=== PATIENT | female | born 1990 | race Caucasian/White ===

== ENCOUNTER 2018-02-10 16:30 | Inpatient (IN) | payer OTHER ==
[2018-02-10] MEDS ORDERED: CALCIUM CARBONATE 500 MG CHEWABLE TAB PO PRN (17:43)
[2018-02-10] MEDS: ACETAMINOPHEN 500 MG TAB PO PRN (18:02)
--- NOTE | 2018-02-10 18:43 | GHP ---
[f rep st] HISTORY AND PHYSICAL DATE OF ADMISSION: 02/10/2018 ADMISSION DIAGNOSES: 1. Intrauterine at 36 weeks and 4 days. 2. Leakage of fluid. 3. New onset headaches, visual changes. 4. Elevated blood pressures. HISTORY OF PRESENT ILLNESS: The patient is a 27-year-old, 1, para 0, at 36 and 4 weeks with estimated due date 03/06/2018; this is by last menstrual period, 05/28/2017, consistent with an 8-week ultrasound. The patient presents to Labor and Delivery with complaints of leakage of fluid. She noticed a gush x2 earlier today, clear fluid noted. No odor. She has not noticed any further leaking, just noticed that there is some moisture. Denies any vaginal bleeding or spotting. She is also complaining of decreased movement, has not really felt baby boy move much today. She thought it felt like it was secondary to dehydration and started hydrating really well and still did not feel any movement. The patient is also complaining of new onset of headaches and blurred vision, seeing black spots. This has been going on for the last 4 days. The headache has not gone away with Tylenol. She did not take any Tylenol today. The patient states the black spots are no there all the time , but did start with the onset of headache 4 days ago. The patient denies any right upper quadrant pain or epigastric pain. The patient was seen at her visit yesterday by our rn perioperative, Danielle, and [facility] labs were drawn secondary to complaints of headache. Blood pressure in the office was 106/64. The patient does have good care at [facility], and presented in her first trimester. Her 20-week anatomy scan revealed normal anatomy, posterior placenta, with an estimated weight in 40th percentile. The patient is Rh negative, and did receive RhoGAM 12/16/2017. She is also rubella nonimmune. The patient does have a history of abnormal Pap smear-LSIL. Did not have a colpo. She had a repeat Pap at 30 weeks and was high- grade. Patient then undergo a colposcopy at 32 weeks with no abnormal findings noted. The patient was complaining of contractions and increased vaginal discharge at 35 weeks and had a spec exam that was negative for pooling and fern. Cervix was closed, thick and high. The patient received both flu and Tdap in the . GBS culture is negative. PAST OB HISTORY: The patient is a primigravida. PAST MUSIC MINISTRIES DIRECTOR HISTORY: Age of menarche 13. Cycles every 28 days for 3-4 days. Positive test 07/05/2017. The patient does have a history of abnormal Pap smears, and had colposcopy x2, but no treatment. Patient has h/o + HPV, but denies exposure to any other sexually transmitted diseases. She has a history of NuvaRing and Depo use in the past, as well as OCPs, which she discontinued 3 months prior to becoming . CURRENT MEDICATIONS: vitamins. ALLERGIES: No known drug allergies. MEDICAL HISTORY: History of melanoma of the right knee in 2016. PAST SURGICAL HISTORY: Tonsillectomy at age 20; right ankle surgery x2 in college secondary to soccer injury. FAMILY HISTORY: Mother, breast cancer in late 30s, early 40s. SOCIAL HISTORY: The patient is a single, has a partner. She is an data assistant. The patient had tobacco use of half-a-pack per day for 2 years , decreased 3 months prior to getting , and discontinued when she found out she was . The patient denies any alcohol use or illicit drug use. REVIEW OF SYSTEMS: 10-point review of systems is negative, pertinent positives noted in HPI. LABS: B-negative, antibody negative. RPR nonreactive. Rubella non- immune. Hepatitis B surface antigen negative. HIV negative. Standard panel negative. Urine culture negative. Pap test was negative, positive HPV. GC and chlamydia cultures negative. Innatal screen negative. H and H 13.5, 37.5. One-hour Glucola of 119. Rh antibody negative, RhoGAM given 12/16/2017. GBS culture negative. LABS: H and H 14.5 and 40.7, platelets are 167. BUN 10, creatinine 0.5, uric acid 4.2, AST 26, ALT 41, LDH 487. Urine random creatinine 19.5, urine random total protein 14, this is consistent with P-to-C ratio of 0.7, which is elevated. PHYSICAL EXAMINATION: VITAL SIGNS: On admission, the patient is afebrile. Blood pressure on admission initially 143/93, 134/82, 137/78, and most recently 128/80. GENERAL: She is a well-nourished, well-developed female, alert and oriented x3. No apparent distress. Headache. CARDIOVASCULAR: Regular rate and rhythm. LUNGS: Clear to auscultation bilaterally. ABDOMEN: Gravid, soft, nontender, nondistended. PELVIC: Exam was deferred. Not grossly ruptured. Not enough fluid for Nitrazine. EXTREMITIES: Normal to inspection without calf tenderness, mild edema. +1 DTRs. heart tones: Category 1 tracing, with heart baseline 130 beats per minute. Positive accelerations. No decelerations. Moderate variability. On toco, there is uterine irritability. ASSESSMENT AND PLAN: The patient is a 27-year-old, 1, para 0, at 36 and 4 weeks, who presents with leakage of fluid, elevated blood pressures, and new onset visual changes and headaches. 1. Will admit to Labor and Delivery for observation. 2. AmniSure is negative, pt is not ruptured at this time. 3. -induced hypertension labs normal. However, there is an elevated vgcgydg-co-ebsahrcs ratio at 0.7. 4. Will start a 24-hour urine; concern for preeclampsia with new onset headaches, visual changes, as well as elevated BPs and pkqazzc-ga-qtyknojyyw ratio. 5. Will continue to closely monitor blood pressures. Right now, the patient does not meet criteria for gestational hypertension; however, does have severe features of preeclampsia despite blood pressures less than 140/90. 6. Will observe overnight with close monitoring for worsening symptoms or elevated blood pressures and consider rescue steroids. /[id number]/MODL MTDD
[2018-02-10] MEDS: ACET/CAFFEINE/BUTA FIORICET 1 EACH TAB PO PRN (22:02)
[2018-02-10] MEDS: ZOLPIDEM TARTRATE 5 MG TAB PO PRN (22:13)
[2018-02-11] MEDS: ACETAMINOPHEN 500 MG TAB PO PRN ×2 (06:06→13:10)
[2018-02-11 06:27] LABS: PLATELET COUNT 163 10^3/uL (150-400)
[2018-02-11] MEDS: ACET/CAFFEINE/BUTA FIORICET 1 EACH TAB PO PRN ×2 (07:37→15:21)
--- NOTE | 2018-02-11 13:49 | OBPROG ---
Labor Progress Note Assessment/Plan: Assessment: IUP at 36w5d slight elevation of bld pressures - not preeclampsia range stable labs headache - no help with fiorecet, is 4/10 range mild right epigastric pain Plan: complete 24 hr urine collection, then feel pt can be discharged home. Pt to watch symptoms and call for worsening of PÉREZ or N/V or RUQ pain. If she checks bld pressures, call if greater than 140/90. Rec RTC on Mon with NST 02/11/18 13:44 Subjective/Intrapartum Course: 02/11/18 13:49 Pt still c/o PÉREZ 4/10, and right epigastric pain gradually building this week. Pt reports +FM and increased ctxns on night - no bleeding. some tightening today. reviewed with pt that b/p tolerable, although increased from prior in pregnance. Labs all normal and will complete urine collection for comparison if needed later. Objective: 02/11/18 06:14 02/11/18 06:14 Uric Acid 4.0 mg/dL (2.5-6.8) 02/11/18 06:14 AST 24 IU/L (14-46) 02/11/18 06:14 ALT 40 IU/L (9-52) 02/11/18 06:14 Lactate Dehydrogenase 444 IU/L (313-618) 02/11/18 06:14 - FHR Assessment Torres FHR (bpm): 130 FHR Pattern Variability: Moderate FHR Category: 1 - Physical Exam General Appearance: WD/WN, other (flat affect ) Abdomen: non-tender, soft Extremities: non-tender, pedal edema (mild and normal DTRs) Skin: normal color, warm/dry Neuro/Psych: alert, normal mood/affect (blunt affect) Oxytocin Orders Assessment - Pre-Induction/Augmentation Assessment Gestational Age: 36 week(s) and 4 day(s) ICD10 Worksheet Patient Problems: Problems Problem Status Onset Gestational [-induced] hypertension without significant proteinuria, third trimester Acute Headache Acute Third trimester Acute
[2018-02-11] MEDS ORDERED: MISOPROSTOL 200 MCG TAB PR PRN (19:23)
[2018-02-11] MEDS ORDERED: OXYTOCIN 20 UNIT in LR 1,000 ML IV PRN (19:23)
[2018-02-11] MEDS ORDERED: OLIVE OIL 118 ML BTL MISC PRN (19:23)
[2018-02-11] MEDS ORDERED: EPSOM SALT 454 GM TP PRN (19:23)
[2018-02-11] MEDS ORDERED: TERBUTALINE SULFATE 1 MG/ML VIAL IV PRN (19:23)
[2018-02-11] MEDS ORDERED: IBUPROFEN 600 MG TAB PO PRN (19:23)
[2018-02-11] MEDS ORDERED: BETAMETHASONE IM SYRINGE IM ONE (19:26)
--- NOTE | 2018-02-11 19:34 | OBPROG ---
Labor Progress Note Assessment/Plan: Assessment: IUP at 36w5d gestational hypertension with some severe components with persistent PÉREZ at 5/10 stable labs - will recheck now mild right epigastric pain will give BMZ GBS - suspect unfavorable cx - will check now and place jay prn for induction tomorrow Plan: jay tonight and labs, BMZ and if stable - begin pit in am 02/11/18 13:44 02/11/18 19:27 Subjective/Intrapartum Course: 02/11/18 13:49 Pt still c/o PÉREZ 4/10, and right epigastric pain gradually building this week. Pt reports +FM and increased ctxns on night - no bleeding. some tightening today. reviewed with pt that b/p tolerable, although increased from prior in pregnance. Labs all normal and will complete urine collection for comparison if needed later. 02/11/18 19:29 Pt preparing to leave after last urine collection but c/o PÉREZ intensity of 5-6/ 10 - no help with Fiorecet. Due to persistent symptoms and b/p of 142/90 - pt was offered to stay and keep close eye on b/p,symptoms. After long discussion , pt's b/p 150s/90s and decision to proceed with induction for gest HTN with some severe features. Will place jay and give BMZ. recheck labs. Pt and husb agree Objective: 02/11/18 06:14 02/11/18 06:14 Uric Acid 4.0 mg/dL (2.5-6.8) 02/11/18 06:14 AST 24 IU/L (14-46) 02/11/18 06:14 ALT 40 IU/L (9-52) 02/11/18 06:14 Lactate Dehydrogenase 444 IU/L (313-618) 02/11/18 06:14 - Contraction Pattern Assessment Current Contraction Pattern: Other (Specify) (none) Oxytocin Orders Assessment - Pre-Induction/Augmentation Assessment Gestational Age: 36 week(s) and 4 day(s) ICD10 Worksheet Patient Problems: Problems Problem Status Onset Gestational [-induced] hypertension without significant proteinuria, third trimester Acute Headache Acute Third trimester Acute
[2018-02-11 20:34] LABS: PLATELET COUNT 167 10^3/uL (150-400)
[2018-02-11] MEDS ORDERED: METOCLOPRAMIDE 10 MG/2 ML VIAL IVP ONE (21:15)
--- NOTE | 2018-02-11 21:49 | OBPROG ---
Labor Progress Note Assessment/Plan: Assessment: IUP at 36w5d gestational hypertension with some severe components with persistent PÉREZ at 5/10 stable labs mild right epigastric pain BMZ - given GBS - unfavorable cx - FT/50/post/soft Plan: jay placed- begin pit in am tried Reglan for PÉREZ Ambien to sleep 02/11/18 13:44 02/11/18 19:27 02/11/18 21:44 Subjective/Intrapartum Course: 02/11/18 13:49 Pt still c/o PÉREZ 4/10, and right epigastric pain gradually building this week. Pt reports +FM and increased ctxns on night - no bleeding. some tightening today. reviewed with pt that b/p tolerable, although increased from prior in pregnance. Labs all normal and will complete urine collection for comparison if needed later. 02/11/18 19:29 Pt preparing to leave after last urine collection but c/o PÉREZ intensity of 5-6/ 10 - no help with Fiorecet. Due to persistent symptoms and b/p of 142/90 - pt was offered to stay and keep close eye on b/p,symptoms. After long discussion , pt's b/p 150s/90s and decision to proceed with induction for gest HTN with some severe features. Will place jay and give BMZ. recheck labs. Pt and husb agree 02/11/18 21:46 Pt states PÉREZ persisting, will try reglan. ok with jay placement. b/p 130-150/ 80-100s Objective: 02/11/18 19:50 02/11/18 19:50 Patient ABO/Rh B NEGATIVE 02/11/18 19:50 Uric Acid 4.1 mg/dL (2.5-6.8) 02/11/18 19:50 Total Bilirubin 0.4 mg/dL (0.1-1.4) 02/11/18 19:50 Conjugated Bilirubin 0.3 mg/dL (0.0-0.5) 02/11/18 19:50 Unconjugated Bilirubin 0.1 mg/dL (0.0-1.1) 02/11/18 19:50 AST 24 IU/L (14-46) 02/11/18 19:50 ALT 42 IU/L (9-52) 02/11/18 19:50 Lactate Dehydrogenase 488 IU/L (313-618) 02/11/18 19:50 labs reassuring 24 hr urine greater than 900mg - SVE Dilation (cm): 0 (Fingertip) Effacement (%): 50 Station: -1 Membranes: Intact - Contraction Pattern Assessment Current Contraction Pattern: Other (Specify) (none) - FHR Assessment Torres FHR (bpm): 140 FHR Pattern Variability: Moderate FHR Category: 1 - Procedures Non-surgical Procedures: Other (Specify) (jay placement uncomplicated. cx/ vagina wiped with betadine gauze x4, jay inserted without probs. filled with 30 cc) - Physical Exam General Appearance: WD/WN Estimated Weight: 2501-3400g Abdomen: soft Extremities: non-tender, pedal edema (minimal, normal DTRs) Skin: normal color, warm/dry Neuro/Psych: alert, normal mood/affect Oxytocin Orders Assessment - Pre-Induction/Augmentation Assessment Gestational Age: 36 week(s) and 4 day(s) ICD10 Worksheet Patient Problems: Problems Problem Status Onset Gestational [-induced] hypertension without significant proteinuria, third trimester Acute Headache Acute Third trimester Acute
[2018-02-11] MEDS: RANITIDINE 50 MG/2 ML VIAL IVP PRN (21:55)
[2018-02-11] MEDS: ZOLPIDEM TARTRATE 5 MG TAB PO PRN (23:22)
[2018-02-12] MEDS ORDERED: LR 500 ML IV PRN (00:06)
[2018-02-12] MEDS ORDERED: OXYTOCIN 30 UNIT in NS 500 ML IV SCH (00:15)
[2018-02-12] MEDS ORDERED: TERBUTALINE SULFATE 1 MG/ML VIAL ONE (05:21)
[2018-02-12] MEDS ORDERED: OLIVE OIL 118 ML BTL ONE (05:21)
[2018-02-12] MEDS ORDERED: AMMONIA AROMATIC 1 EACH AMP IH ONE (05:21)
[2018-02-12] MEDS ORDERED: LIDOCAINE 1% 300 MG/30 ML SDV ONE (05:21)
[2018-02-12] MEDS ORDERED: OXYTOCIN 10 UNIT/ML VIAL ONE (05:22)
[2018-02-12] MEDS ORDERED: MISOPROSTOL 200 MCG TAB ONE (05:22)
[2018-02-12] MEDS: LR 1,000 ML IV PRN ×2 (06:06→13:50)
[2018-02-12] MEDS: ACET/CAFFEINE/BUTA FIORICET 1 EACH TAB PO PRN (07:32)
[2018-02-12] MEDS: METOCLOPRAMIDE 10 MG/2 ML VIAL IVP PRN ×2 (09:41→18:23)
[2018-02-12] MEDS: RANITIDINE 50 MG/2 ML VIAL IVP PRN (10:54)
--- NOTE | 2018-02-12 11:38 | OBPROG ---
Labor Progress Note Assessment/Plan: Assessment: Pitocin now at 20 this AM, jay in place. Pt not feeling much at all - some mild cramping that comes and goes, has been intermittently sleeping. Baby looks good, Category I/II. BP's mild range, none severe, PÉREZ has waxed and waned but now 2/10 with recent Reglan. Reflexes normal. Plan: IOL: Not much response now on 20 of Pit, I don't like to go higher than 20 without an IUPC. Discussed w pt and partner that if not making more progress after 2 hours - options would be to take break from Pit then turn back on vs turning Pitocin off and ripening overnight with Cervidil (wouldn't use Cytotec for her). I'd recommend the later, and they're fine with that. Will monitor BP and treat as needed - if PÉREZ becomes unmanageable or if BP's become severe would start mag. Won't repeat labs right away - won't change anything in the absence of a change in her clinical status. Subjective/Intrapartum Course: 02/11/18 13:49 Pt still c/o PÉREZ 4/10, and right epigastric pain gradually building this week. Pt reports +FM and increased ctxns on night - no bleeding. some tightening today. reviewed with pt that b/p tolerable, although increased from prior in pregnance. Labs all normal and will complete urine collection for comparison if needed later. 02/11/18 19:29 Pt preparing to leave after last urine collection but c/o PÉREZ intensity of 5-6/ 10 - no help with Fiorecet. Due to persistent symptoms and b/p of 142/90 - pt was offered to stay and keep close eye on b/p,symptoms. After long discussion , pt's b/p 150s/90s and decision to proceed with induction for gest HTN with some severe features. Will place jay and give BMZ. recheck labs. Pt and husb agree 02/11/18 21:46 Pt states PÉREZ persisting, will try reglan. ok with jay placement. b/p 130-150/ 80-100s 02/12/18 11:38 PÉREZ improved now 2/10 after Reglan. Has been sleeping. Denies other new/ evolving s/sx of Preeclampsia. She feels some constant lower pelvic cramping, but not neccesssarily discrete ctx's that come and go. Objective: 02/11/18 19:50 02/11/18 19:50 Patient ABO/Rh B NEGATIVE 02/11/18 19:50 Uric Acid 4.1 mg/dL (2.5-6.8) 02/11/18 19:50 Total Bilirubin 0.4 mg/dL (0.1-1.4) 02/11/18 19:50 Conjugated Bilirubin 0.3 mg/dL (0.0-0.5) 02/11/18 19:50 Unconjugated Bilirubin 0.1 mg/dL (0.0-1.1) 02/11/18 19:50 AST 24 IU/L (14-46) 02/11/18 19:50 ALT 42 IU/L (9-52) 02/11/18 19:50 Lactate Dehydrogenase 488 IU/L (313-618) 02/11/18 19:50 - SVE Membranes: Intact - Contraction Pattern Assessment Current Contraction Pattern: Irregular, Other (Specify) (none) - FHR Assessment Torres FHR (bpm): 140 FHR Pattern Variability: Moderate FHR Category: 1 - Procedures Non-surgical Procedures: Other (Specify) (jay placement uncomplicated. cx/ vagina wiped with betadine gauze x4, jay inserted without probs. filled with 30 cc) - Physical Exam Estimated Weight: 2501-3400g Oxytocin Orders Assessment - Pre-Induction/Augmentation Assessment Gestational Age: 36 week(s) and 4 day(s) Estimated Weight: 2501-3400g ICD10 Worksheet Patient Problems: Problems Problem Status Onset Gestational [-induced] hypertension without significant proteinuria, third trimester Acute Headache Acute Third trimester Acute
--- NOTE | 2018-02-12 15:39 | OBPROG ---
Labor Progress Note Assessment/Plan: Assessment: Pitocin now at 20 this AM, jay in place. Pt not feeling much at all - some mild cramping that comes and goes, has been intermittently sleeping. Baby looks good, Category I/II. BP's mild range, none severe, PÉREZ has waxed and waned but now 2/10 with recent Reglan. Reflexes normal. Plan: IOL: Not much response now on 20 of Pit, I don't like to go higher than 20 without an IUPC. Discussed w pt and partner that if not making more progress after 2 hours - options would be to take break from Pit then turn back on vs turning Pitocin off and ripening overnight with Cervidil (wouldn't use Cytotec for her). I'd recommend the later, and they're fine with that. Will monitor BP and treat as needed - if PÉREZ becomes unmanageable or if BP's become severe would start mag. Won't repeat labs right away - won't change anything in the absence of a change in her clinical status. 02/12/18 15:38 Balloon was in the vagina during my exam - 3cm, 40% and pretty firm cervix, -1 station. AROM performed with clear fluid. She will think about epidural based on how things are changing. Baby Category I. BPs normal to mild range, PÉREZ minimal. Subjective/Intrapartum Course: 02/11/18 13:49 Pt still c/o PÉREZ 4/10, and right epigastric pain gradually building this week. Pt reports +FM and increased ctxns on night - no bleeding. some tightening today. reviewed with pt that b/p tolerable, although increased from prior in pregnance. Labs all normal and will complete urine collection for comparison if needed later. 02/11/18 19:29 Pt preparing to leave after last urine collection but c/o PÉREZ intensity of 5-6/ 10 - no help with Fiorecet. Due to persistent symptoms and b/p of 142/90 - pt was offered to stay and keep close eye on b/p,symptoms. After long discussion , pt's b/p 150s/90s and decision to proceed with induction for gest HTN with some severe features. Will place jay and give BMZ. recheck labs. Pt and husb agree 02/11/18 21:46 Pt states PÉREZ persisting, will try reglan. ok with jay placement. b/p 130-150/ 80-100s 02/12/18 11:38 PÉREZ improved now 2/10 after Reglan. Has been sleeping. Denies other new/ evolving s/sx of Preeclampsia. She feels some constant lower pelvic cramping, but not neccesssarily discrete ctx's that come and go. 02/12/18 15:36 Feeling more uncomfortable ctx's over the past hour. Thinking about pain control options. Objective: 02/11/18 19:50 02/11/18 19:50 Patient ABO/Rh B NEGATIVE 02/11/18 19:50 Uric Acid 4.1 mg/dL (2.5-6.8) 02/11/18 19:50 Total Bilirubin 0.4 mg/dL (0.1-1.4) 02/11/18 19:50 Conjugated Bilirubin 0.3 mg/dL (0.0-0.5) 02/11/18 19:50 Unconjugated Bilirubin 0.1 mg/dL (0.0-1.1) 02/11/18 19:50 AST 24 IU/L (14-46) 02/11/18 19:50 ALT 42 IU/L (9-52) 02/11/18 19:50 Lactate Dehydrogenase 488 IU/L (313-618) 02/11/18 19:50 - SVE Dilation (cm): 3 Effacement (%): 50 Station: -1 Membranes: AROM (Clear fluid), Intact Amniotic Fluid Color: Clear - Contraction Pattern Assessment Current Contraction Pattern: Regular, Other (Specify) (none) - FHR Assessment Torres FHR (bpm): 135 FHR Pattern Variability: Moderate FHR Category: 1 - Procedures Non-surgical Procedures: Other (Specify) (jay placement uncomplicated. cx/ vagina wiped with betadine gauze x4, jay inserted without probs. filled with 30 cc) - Physical Exam General Appearance: WD/WN Estimated Weight: 2501-3400g Oxytocin Orders Assessment - Pre-Induction/Augmentation Assessment Gestational Age: 36 week(s) and 4 day(s) Estimated Weight: 2501-3400g ICD10 Worksheet Patient Problems: Problems Problem Status Onset Gestational [-induced] hypertension without significant proteinuria, third trimester Acute Headache Acute Third trimester Acute
[2018-02-12] MEDS ORDERED: fentanYL 4MCG/ML/BUP 0.0625% RTU 250 ML BAG EP ONE (17:22)
[2018-02-12] MEDS ORDERED: PHENYLEPHRINE HCL 100 MCG/ML SYR ONE (17:23)
[2018-02-12] MEDS ORDERED: ONDANSETRON 4 MG/2 ML VIAL IVP PRN (17:57)
[2018-02-12] MEDS ORDERED: PHENYLEPHRINE HCL 100 MCG/ML SYR IVP PRN (17:57)
--- NOTE | 2018-02-12 17:57 | PREANESOB ---
Obstetric Pre-Anesthesia Info - General Info Proposed Procedure: LAbor Epidural : 1 Para: 0 GOMEZ: 03/06/18 Gestational Age: 36 week(s) and 4 day(s) - Labor Status Cervical Dilation per last OB SVE: 3 Station per last OB SVE: -1 Amniotic Fluid Color: Clear Labor Epidural: Yes Anesthesia Allergies/Adverse Reactions: Allergy/AdvReac Type Severity Reaction Status Date / Time No Known Allergies Allergy Unverified 07/09/15 18:16 Home Medications: Medication Instructions Recorded Vit27&Calcium/Iron/FA 02/10/18 [] Acetaminophen [Tylenol ES 500 mg 1,000 mg PO Q6HRS PRN tab 02/11/18 (*)] Calcium Carbonate [Tums 500MG (*)] 500 mg PO TID PRN tab.chew 02/11/18 Visit Medications: Generic Name Dose Route Start Last Admin Trade Name Freq PRN Reason Stop Dose Admin Acetaminophen 1,000 mg 02/10/18 17:41 02/11/18 13:10 Tylenol PO 08/09/18 17:40 1,000 mg Q6HRS PRN Administration Pain, Mild/Fever, Can Take PO Acetaminophen/Butalbital/Caffeine 1 each 02/10/18 21:33 02/12/18 07:32 Fioricet PO 02/20/18 21:32 1 each Q6HRS PRN Administration Headache Calcium Carbonate 500 mg 02/10/18 17:43 Tums PO 08/09/18 17:42 TID PRN Indigestion Lactated Ringer's 1,000 mls @ 0 mls/hr 02/11/18 19:23 02/12/18 13:50 Lr IV 02/12/18 19:22 1,000 mls PRN PRN Administration SEE PROTOCOL CONDITIONS Protocol Per Protocol Oxytocin 20 unit/ Lactated 1,002 mls @ 150 mls/hr 02/11/18 19:23 Ringer's IV PRN PRN Post- bleeding Lactated Ringer's 500 mls @ 500 mls/hr 02/12/18 00:06 Lr IV 02/13/18 00:06 PRN PRN Maternal Hypotension Oxytocin 30 unit/ Sodium 503 mls @ 0 mls/hr 02/12/18 00:15 02/12/18 06:05 Chloride IV 08/11/18 00:14 503 mls CONT VIRGIL Administration Protocol Per Protocol Ibuprofen 600 mg 02/11/18 19:23 Motrin PO 08/10/18 19:22 Q6HRS PRN post , inflammation Magnesium Sulfate 454 gm 02/11/18 19:23 Epsom Salt TP 08/10/18 19:22 Q1H PRN perineal discomfort Metoclopramide HCl 10 mg 02/12/18 09:02 02/12/18 09:41 Reglan Injection IVP 08/11/18 09:01 10 mg Q6H PRN Administration Headache Misoprostol 800 - 1,000 mcg 02/11/18 19:23 Cytotec OK ONCE PRN Vaginal Atony/Bleeding [place]itchfield Oil 118 ml 02/11/18 19:23 Sweet Oil MISC 08/10/18 19:22 ONCE PRN perineal massage Ranitidine HCl 50 mg 02/11/18 21:12 02/12/18 10:54 Zantac IVP 08/10/18 21:59 50 mg Q8HRS PRN Administration Indigestion Terbutaline Sulfate 0.25 mg 02/11/18 19:23 Brethine IV 08/10/18 19:22 ONCE PRN Tachysystole Zolpidem Tartrate 5 mg 02/10/18 17:42 02/11/18 23:22 Ambien PO 08/09/18 17:41 5 mg HS PRN Administration Sleep/Insomnia Discontinued Medications Generic Name Dose Route Start Last Admin Trade Name Freq PRN Reason Stop Dose Admin Ammonia (Aromatic Spirit) Confirm 02/12/18 05:21 Ammonia Aromatic Administered 02/12/18 05:22 Dose 1 each IH .STK-MED ONE Betamethasone Acet/Betameth SodPhos 12 mg 02/11/18 19:26 02/11/18 20:07 Celestone Im Syringe IM 02/11/18 19:27 12 mg ONCE ONE Administration Fentanyl/Bupivacaine HCl Confirm 02/12/18 17:22 Fentanyl/Bupivacaine/Ns 4 Mcg/Ml 0.0625%(Rtu) Administered 02/12/18 17:23 Dose 250 ml EP .STK-MED ONE Lidocaine HCl Confirm 02/12/18 05:21 Lidocaine Hcl 1% Administered 02/12/18 05:22 Dose 300 mg .ROUTE .STK-MED ONE Metoclopramide HCl 10 mg 02/11/18 21:15 03/23/18 21:27 Reglan Injection IVP 02/11/18 21:16 10 mg ONCE ONE Administration Misoprostol Confirm 02/12/18 05:22 Cytotec Administered 02/12/18 05:23 Dose 1,000 mcg .ROUTE .STK-MED ONE Litchfield Oil Confirm 02/12/18 05:21 Sweet Oil Administered 02/12/18 05:22 Dose 118 ml .ROUTE .STK-MED ONE Oxytocin Confirm 02/12/18 05:22 Pitocin Administered 02/12/18 05:23 Dose 30 unit .ROUTE .STK-MED ONE Phenylephrine HCl Confirm 02/12/18 17:23 Neosynephrine Administered 02/12/18 17:24 Dose 1,000 mcg .ROUTE .STK-MED ONE Terbutaline Sulfate Confirm 02/12/18 05:21 Brethine Administered 02/12/18 05:22 Dose 1 mg .ROUTE .STK-MED ONE - Vital Signs Height/Weight (Nursing): Height 165.1 cm Weight 96.615 kg Labs: 02/11/18 19:50 02/11/18 19:50 Patient ABO/Rh B NEGATIVE 02/11/18 19:50 Uric Acid 4.1 mg/dL (2.5-6.8) 02/11/18 19:50 Total Bilirubin 0.4 mg/dL (0.1-1.4) 02/11/18 19:50 Conjugated Bilirubin 0.3 mg/dL (0.0-0.5) 02/11/18 19:50 Unconjugated Bilirubin 0.1 mg/dL (0.0-1.1) 02/11/18 19:50 AST 24 IU/L (14-46) 02/11/18 19:50 ALT 42 IU/L (9-52) 02/11/18 19:50 Lactate Dehydrogenase 488 IU/L (313-618) 02/11/18 19:50
[2018-02-12] MEDS ORDERED: LR 500 ML IV SCH (18:00)
[2018-02-12] MEDS ORDERED: fentaNYL 4MCG/ML/BUP 0.0625% R 250 ML EP SCH (18:00)
[2018-02-12] MEDS ORDERED: BETAMETHASONE IM SYRINGE IM ONE (21:15)
[2018-02-12] MEDS: ACETAMINOPHEN 500 MG TAB PO PRN (22:26)
--- NOTE | 2018-02-12 22:31 | OBDEL ---
Info Type: Vaginal Presentation at Delivery: Vertex L&D Analgesia/Anesthesia Type: Epidural, Local GBS+: No Intrapartum Medications: Generic Name Dose Route Start Last Admin Trade Name Tre PRN Reason Stop Dose Admin Acetaminophen 1,000 mg 02/10/18 17:41 02/12/18 22:26 Tylenol PO 08/09/18 17:40 1,000 mg Q6HRS PRN Administration Pain, Mild/Fever, Can Take PO Acetaminophen/Butalbital/Caffeine 1 each 02/10/18 21:33 02/12/18 07:32 Fioricet PO 02/20/18 21:32 1 each Q6HRS PRN Administration Headache Oxytocin 30 unit/ Sodium 503 mls @ 0 mls/hr 02/12/18 00:15 02/12/18 06:05 Chloride IV 08/11/18 00:14 503 mls CONT VIRGIL Administration Protocol Per Protocol Metoclopramide HCl 10 mg 02/12/18 09:02 02/12/18 18:23 Reglan Injection IVP 08/11/18 09:01 10 mg Q6H PRN Administration Headache Ranitidine HCl 50 mg 02/11/18 21:12 02/12/18 10:54 Zantac IVP 08/10/18 21:59 50 mg Q8HRS PRN Administration Indigestion Zolpidem Tartrate 5 mg 02/10/18 17:42 02/11/18 23:22 Ambien PO 08/09/18 17:41 5 mg HS PRN Administration Sleep/Insomnia Discontinued Medications Generic Name Dose Route Start Last Admin Trade Name Tre PRN Reason Stop Dose Admin Betamethasone Acet/Betameth SodPhos 12 mg 02/11/18 19:26 02/11/18 20:07 Celestone Im Syringe IM 02/11/18 19:27 12 mg ONCE ONE Administration Betamethasone Acet/Betameth SodPhos 12.5 mg 02/12/18 21:15 02/12/18 21:15 Celestone Im Syringe IM 02/12/18 21:16 12.5 mg ONCE ONE Administration Lactated Ringer's 1,000 mls @ 0 mls/hr 02/11/18 19:23 02/12/18 13:50 Lr IV 02/12/18 19:22 1,000 mls PRN PRN Administration SEE PROTOCOL CONDITIONS Protocol Per Protocol Metoclopramide HCl 10 mg 02/11/18 21:15 02/11/18 21:27 Reglan Injection IVP 02/11/18 21:16 10 mg ONCE ONE Administration - Hospital Course Intrapartum: 02/11/18 13:49 Pt still c/o PÉREZ 4/10, and right epigastric pain gradually building this week. Pt reports +FM and increased ctxns on night - no bleeding. some tightening today. reviewed with pt that b/p tolerable, although increased from prior in pregnance. Labs all normal and will complete urine collection for comparison if needed later. 02/11/18 19:29 Pt preparing to leave after last urine collection but c/o PÉREZ intensity of 5-6/ 10 - no help with Fiorecet. Due to persistent symptoms and b/p of 142/90 - pt was offered to stay and keep close eye on b/p,symptoms. After long discussion , pt's b/p 150s/90s and decision to proceed with induction for gest HTN with some severe features. Will place jay and give BMZ. recheck labs. Pt and husb agree 02/11/18 21:46 Pt states PÉREZ persisting, will try reglan. ok with jay placement. b/p 130-150/ 80-100s 02/12/18 11:38 PÉREZ improved now 2/10 after Reglan. Has been sleeping. Denies other new/ evolving s/sx of Preeclampsia. She feels some constant lower pelvic cramping, but not neccesssarily discrete ctx's that come and go. 02/12/18 15:36 Feeling more uncomfortable ctx's over the past hour. Thinking about pain control options. Indications for Delivery: Preeclampsia Mild (PÉREZ concerning for severe, but never really met criteria for severe) Vaginal Delivery - Delivery Provider Delivery Physician/CNM: Kelvin Sharpe - Labor and Delivery Onset of Contractions Date: 02/12/18 Onset of Contractions Time: 06:00 Onset of Contractions Type: Augmented Rupture of Membranes Date: 02/12/18 Rupture of Membranes Time: 14:00 Rupture of Membranes Type: Artificial Amniotic Fluid Color: Clear Dilation Complete Date: 02/12/18 Dilation Complete Time: 21:00 Placenta Delivery Date: 02/12/18 Placenta Delivery Time: 22:00 Total Hours of Labor: 16 Non-surgical Procedures: Amniotomy, Other (Specify) (jay placement uncomplicated. cx/vagina wiped with betadine gauze x4, jay inserted without probs. filled with 30 cc) Laceration: 1st Degree Repair: 3-0 (Small areas of running locked 3-0 vicryl x 2. Superficial. Hemostatic R periurethral.) Vaginal Sponge Count Correct: Yes Vaginal Needle Count Correct: Yes Vaginal Sweep Performed: Yes EBL: 300 Delivery Comment: Briefly, pt began IOL with Jay bulb placement on 02/11/18. Did well overnight , Pitocin was started early this AM. Was 3cm when the balloon came out around 1400 at which time we also performed AROM with clear fluid. Category II tracing throughout stage I, rare non-repetitive late decels addressed with position change and O2. Got epidural around 6cm and completed around 2100. Pushed for only 30-40 minutes and eventually delivered vigorous baby boy over 1st degree laceration and hemostatic right periurethral. Baby on on mom's chest , 90 seconds of delayed cord clamping, and Dad cut the cord. Placenta delivered spontaneously no issues. Perineum repaired with two short runs of locked with 3-0 vicryl. Right periurethral didn't require any stitches. Local injected in the perineum prior to stitches. Placenta sent to path, but cord gasses not needed. BPs remained normal to mild range throughout labor, none severe, pt's PÉREZ did not really worsen throughout that process either - treated with Reglan PRN. Mom and baby doing well in room after delivery. Cord Gases: Not sent - Medications Labor Augmentation/Induction Methods Used: Pitocin, Jay Bulb Labor Augmentation/Induction Indication: Inadequate Ctx Strength [place] Data GOMEZ: 03/06/18 Gestational Age: 36 week(s) and 6 day(s) Torres Delivery Date: 02/12/18 Delivery Time: 10:00 Sex of Infant: Male Score (1 Min): 8 Score (5 Min): 9 Shoulder Dystocia Dystocia Comment: No dystocia ICD10 Worksheet Patient Problems: Problems Problem Status Onset Pre-eclampsia during in third trimester, antepartum Acute Gestational [-induced] hypertension without significant proteinuria, third trimester Acute Headache Acute Third trimester Acute - ICD10 Problem Qualifiers (1) Pre-eclampsia during in third trimester, antepartum
--- NOTE | 2018-02-13 00:48 | PDMN ---
Medical Necessity Medical necessity: C/M review: Patient [place] [facility] [id number] Vaginal delivery: viable male .
[2018-02-13] MEDS: IBUPROFEN 600 MG TAB PO PRN ×4 (01:22→20:08)
[2018-02-13] MEDS ORDERED: SIMETHICONE 80 MG TAB CHEW PO PRN (12:42)
[2018-02-13] MEDS ORDERED: HYDROCODONE/APAP 5/325 TAB PO PRN (12:42)
[2018-02-13] MEDS ORDERED: HYDROCORTISONE 0.5% CREAM TP PRN (12:42)
[2018-02-13] MEDS ORDERED: ACETAMINOPHEN 325 MG TAB PO PRN (12:42)
--- NOTE | 2018-02-13 12:47 | OBPP ---
Progress Note Assessment/Plan: Assessment: PPD 1 s/p preeclampsia - mild but with PÉREZ normal b/p now Plan: routine care 02/11/18 13:44 02/11/18 19:27 02/11/18 21:44 02/13/18 12:44 Subjective/ Course: 02/13/18 12:46 Pt doing well. Tired from working on BF - had a good latch with nipple lacey and SNS. Bld is less. urinating fine. No BM yet. No PÉREZ or scotomata. No heartburn or RUQ pain. Objective: 02/11/18 19:50 02/11/18 19:50 Patient ABO/Rh B NEGATIVE 02/12/18 23:25 Uric Acid 4.1 mg/dL (2.5-6.8) 02/11/18 19:50 Total Bilirubin 0.4 mg/dL (0.1-1.4) 02/11/18 19:50 Conjugated Bilirubin 0.3 mg/dL (0.0-0.5) 02/11/18 19:50 Unconjugated Bilirubin 0.1 mg/dL (0.0-1.1) 02/11/18 19:50 AST 24 IU/L (14-46) 02/11/18 19:50 ALT 42 IU/L (9-52) 02/11/18 19:50 Lactate Dehydrogenase 488 IU/L (313-618) 02/11/18 19:50 Temp Pulse Resp BP Pulse Ox 36.9 C 76 20 115/68 97 02/13/18 09:12 02/13/18 09:12 02/13/18 09:12 02/13/18 09:12 02/13/18 09:12 Uterine Position/Fundal Height: Umbilicus -1 Uterine Tone: Firm Physical Exam - Physical Exam Abdomen: non-tender, soft, other (FF at umb -1) Extremities: non-tender, pedal edema (mild) Skin: normal color, warm/dry Neuro/Psych: alert, normal mood/affect
[2018-02-13] MEDS: DOCUSATE SODIUM 100 MG CAP PO PRN (13:33)
--- NOTE | 2018-02-13 19:06 | POSTANESTH ---
Post Anesthetic Evaluation Cardiovascular Status: Normal, Stable Respiratory Status: Normal, Stable Level of Consciousness/Mental Status: Can Participate in Eval, Alert and Oriented Pain Control: Adequate, Prn Tx Ordered Nausea/Vomiting Control: Adequate, Prn Tx Ordered Complications Possibly Related to Anesthesia: None Noted (Epidural end time 02/12 @ 22:00 - no complaints or concerns)
[2018-02-14] MEDS: IBUPROFEN 600 MG TAB PO PRN ×2 (02:18→09:04)
--- NOTE | 2018-02-14 08:51 | OBPP ---
Progress Note Assessment/Plan: Assessment: nipples intact pumping with assistance pain well managed ff@u scant rubra lochia perineum approximated BP wnl Denies PIH symptoms Plan:discharge to home or border discussed. Pain management, depression, bleeding patten, pericare, contraceptions, fu wed for bp check 4 weeks and 6 weeks, pelvic rest, pelvic rest, exercise walking, rest, verbalized understanding of POC 02/14/18 08:48 Subjective/ Course: 02/13/18 12:46 Pt doing well. Tired from working on BF - had a good latch with nipple lacey and SNS. Bld is less. urinating fine. No BM yet. No PÉREZ or scotomata. No heartburn or RUQ pain. 02/14/18 08:48 Doing well denies difficulties. PAin well managed. Denies PIH symptoms Objective: 02/11/18 19:50 02/11/18 19:50 Patient ABO/Rh B NEGATIVE 02/12/18 23:25 Uric Acid 4.1 mg/dL (2.5-6.8) 02/11/18 19:50 Total Bilirubin 0.4 mg/dL (0.1-1.4) 02/11/18 19:50 Conjugated Bilirubin 0.3 mg/dL (0.0-0.5) 02/11/18 19:50 Unconjugated Bilirubin 0.1 mg/dL (0.0-1.1) 02/11/18 19:50 AST 24 IU/L (14-46) 02/11/18 19:50 ALT 42 IU/L (9-52) 02/11/18 19:50 Lactate Dehydrogenase 488 IU/L (313-618) 02/11/18 19:50 Temp Pulse Resp BP Pulse Ox 36.4 C 90 18 125/80 H 95 02/13/18 20:00 02/13/18 20:00 02/13/18 20:00 02/13/18 20:00 02/13/18 20:00 Uterine Position/Fundal Height: At Umbilicus Uterine Tone: Firm Physical Exam - Physical Exam General Appearance: WD/WN, alert, no apparent distress Abdomen: other (ff@u scant rubra lochia, perineum approximated) Extremities: Lila's sign (negative bilaterally) DTR- Lower Extremities: Knee (R): 1+, Knee (L): 1+ (no clonus) Skin: normal color, warm/dry Neuro/Psych: no motor/sensory deficits, alert, normal mood/affect, oriented x 3
--- NOTE | 2018-02-14 08:54 | OBGCSDC ---
General Delivery Information - General Info : 1 Para: 1 Abortions: 0 Type: Vaginal L&D Analgesia/Anesthesia Type: Epidural, Local Admission Date: 02/10/18 Labs: Patient ABO/Rh B NEGATIVE 02/12/18 23:25 Hct 38.8 % (38.0-47.0) 02/11/18 19:50 - Hospital Course Intrapartum: 02/11/18 13:49 Pt still c/o PÉREZ 4/10, and right epigastric pain gradually building this week. Pt reports +FM and increased ctxns on night - no bleeding. some tightening today. reviewed with pt that b/p tolerable, although increased from prior in pregnance. Labs all normal and will complete urine collection for comparison if needed later. 02/11/18 19:29 Pt preparing to leave after last urine collection but c/o PÉREZ intensity of 5-6/ 10 - no help with Fiorecet. Due to persistent symptoms and b/p of 142/90 - pt was offered to stay and keep close eye on b/p,symptoms. After long discussion , pt's b/p 150s/90s and decision to proceed with induction for gest HTN with some severe features. Will place jay and give BMZ. recheck labs. Pt and husb agree 02/11/18 21:46 Pt states PÉREZ persisting, will try reglan. ok with jay placement. b/p 130-150/ 80-100s 02/12/18 11:38 PÉREZ improved now 2/10 after Reglan. Has been sleeping. Denies other new/ evolving s/sx of Preeclampsia. She feels some constant lower pelvic cramping, but not neccesssarily discrete ctx's that come and go. 02/12/18 15:36 Feeling more uncomfortable ctx's over the past hour. Thinking about pain control options. : 02/13/18 12:46 Pt doing well. Tired from working on BF - had a good latch with nipple lacey and SNS. Bld is less. urinating fine. No BM yet. No PÉREZ or scotomata. No heartburn or RUQ pain. 02/14/18 08:48 Doing well denies difficulties. PAin well managed. Denies PIH symptoms Vaginal - Delivery Provider Delivery Physician/CNM: Kelvin E Annemarie - Diagnosis Labor: Augmented Rupture of Membranes Type: Artificial Amniotic Fluid Color: Clear Laceration: 1st Degree Repair: 3-0 (Small areas of running locked 3-0 vicryl x 2. Superficial. Hemostatic R periurethral.) - Procedures Non-surgical Procedures: Amniotomy, Other (Specify) (jay placement uncomplicated. cx/vagina wiped with betadine gauze x4, jay inserted without probs. filled with 30 cc) - Delivery Non-surgical Procedures: Amniotomy, Other (Specify) (jay placement uncomplicated. cx/vagina wiped with betadine gauze x4, jay inserted without probs. filled with 30 cc) EBL: 300 Data GOMEZ: 03/06/18 Gestational Age: 37 week(s) and 1 day(s) Torres Delivery Date: 02/12/18 Delivery Time: 21:46 Sex of : Male Weight (gm): 2504 g Score (1 Min): 8 Score (5 Min): 9 Discharge Information - Discharge Information Prescriptions: Ibuprofen [Motrin (*)] 600 mg PO Q6HRS PRN #30 tab PRN Reason: Pain & swelling Condition: Good
[2018-02-14] MEDS: DOCUSATE SODIUM 100 MG CAP PO PRN (09:04)
[2018-02-14 09:17] VITALS: BP 123/78; PULSE 56; RESP 20; TEMP 97.4; O2SAT 98
== END 2018-02-14 14:45 | disposition home or self-care (01) | DRG 775 ==
LOC: FLD 16:30 → FOB 02-13 00:26
PROVIDERS: ADMIT Obstetrics & Gynecology; ATTEND Obstetrics & Gynecology
PROC: 3E033VJ Introduction of Other Hormone into Peripheral Vein, Percutaneous Approach (ICD-10-PCS; principal; 2018-02-12)
PROC: 10907ZC Drainage of Amniotic Fluid, Therapeutic from Products of Conception, Via Natural or Artificial Opening (ICD-10-PCS; principal; 2018-02-12)
PROC: 0HQ9XZZ Repair Perineum Skin, External Approach (ICD-10-PCS; principal; 2018-02-12)
PROC: 10E0XZZ Delivery of Products of Conception, External Approach (ICD-10-PCS; principal; 2018-02-12)
DX: O14.04 Mild to moderate pre-eclampsia, complicating childbirth (principal); O70.0 First degree perineal laceration during delivery; R10.13 Epigastric pain; R51 Headache; Z78.9 Other specified health status; Z87.891 Personal history of nicotine dependence; Z67.21 Type B blood, Rh negative; Z3A.37 37 weeks gestation of pregnancy; Z37.0 Single live birth
CPT/HCPCS: J0702; J2370; J2590; J2765; J2780; J3105